=== PATIENT | male | born 1930 | race Caucasian/White ===

== ENCOUNTER 2017-12-21 08:30 | Emergency (ER) | payer MEDICARE, OTHER ==
[~2017-12-21] VITALS: Ht 180.3 cm; Wt 78.6 kg
[2017-12-21 08:35] VITALS: Ht 180.3 cm; Wt 78.6 kg
[2017-12-21] MEDS ORDERED: BAYER CHEWABLE81 MG PO (08:37)
[2017-12-21] MEDS ORDERED: TOPROL XL25 MG PO (08:37)
[2017-12-21] MEDS ORDERED: TIROSINT25 MCG (08:38)
[2017-12-21] MEDS ORDERED: LIPITOR20 MG (08:38)
[2017-12-21] MEDS ORDERED: HYDRALAZINE HCL25 MG (08:38)
[2017-12-21 10:00] VITALS: BP 160/73
== END 2017-12-21 10:01 | disposition home or self-care (01) ==
LOC: D.ER 08:30
DX: R04.0 Epistaxis (principal); I10 Essential (primary) hypertension; C61 Malignant neoplasm of prostate